=== PATIENT | female | born 2000 | race Asian ===

== ENCOUNTER 2018-01-19 14:25 | Emergency (ER) | payer OTHER ==
[2018-01-19] MEDS ORDERED: Azithromycin TAB* 250 MG PO ONE (15:47)
--- NOTE | 2018-01-19 16:02 | UC ---
Respiratory Complaint HPI - HPI Summary HPI Summary: The patient is a 17-year-old female with a one-week history of productive cough. She's had a mild sore throat. She feels mildly short of breath. She denies any chest pain. She denies any headache or muscle aches. He has had a little sinus pressure and pain. - History of Current Complaint Chief Complaint: UCRespiratory Stated Complaint: RESP ISSUE COUGH FEVER SORE THROAT Time Seen by Provider: 01/19/18 15:28 Hx Obtained From: Patient Hx Last Menstrual Period: 2-3 wks ago Onset/Duration: Gradual Onset Timing: Constant Severity Initially: Mild Pain Intensity: 3 Pain Scale Used: 0-10 Numeric Character: Cough: Productive, Sputum Description: - yellowish Aggravating Factors: Allergens - ?? Alleviating Factors: Nothing Associated Signs And Symptoms: Positive: Nasal Congestion - Allergies/Home Medications Allergies/Adverse Reactions: Allergies Allergy/AdvReac Type Severity Reaction Status Date / Time No Known Allergies Allergy Verified 01/19/18 14:48 PMH/Surg Hx/FS Hx/Imm Hx Previously Healthy: Yes - Surgical History Surgical History: None - Family History Known Family History: Positive: Hypertension - Social History Alcohol Use: None Substance Use Type: None Smoking Status (MU): Never Smoked Tobacco Review of Systems Constitutional: Negative Skin: Negative Eyes: Negative ENT: Nasal Discharge Respiratory: Cough Cardiovascular: Negative Gastrointestinal: Negative Genitourinary: Negative Motor: Negative Neurovascular: Negative Musculoskeletal: Negative Neurological: Negative Psychological: Negative Is Patient Immunocompromised?: No All Other Systems Reviewed And Are Negative: Yes Physical Exam Triage Information Reviewed: Yes Appearance: Well-Appearing, No Pain Distress, Well-Nourished Vital Signs: Initial Vital Signs Temp 98.7 F 01/19/18 14:43 Pulse 107 01/19/18 14:43 Resp 12 01/19/18 14:43 BP 107/74 01/19/18 14:43 Pulse Ox 99 01/19/18 14:43 Vital Signs Reviewed: Yes Eyes: Positive: Conjunctiva Clear ENT: Positive: Hearing grossly normal. Negative: Nasal congestion, Nasal drainage, Muffled voice, Hoarse voice Neck: Positive: Supple, Nontender Respiratory: Positive: Normal breath sounds, No respiratory distress, Rhonchi Cardiovascular: Positive: RRR, No Murmur Musculoskeletal: Positive: ROM Intact, No Edema Neurological: Positive: Alert Psychological Exam: Normal UC Diagnostic Evaluation - Laboratory O2 Sat by Pulse Oximetry: 99 - normal/not hypoxic Respiratory Course/Dx - Differential Dx/Diagnosis Provider Diagnoses: acute bronchitis Discharge - Sign-Out/Discharge Documenting (check all that apply): Patient Departure All imaging exams completed and their final reports reviewed: No Studies - Discharge Plan Condition: Stable Disposition: HOME Prescriptions: Azithromycin TAB* [Zithromax TAB*] 250 mg PO DAILY #4 tab Patient Education Materials: Acute Bronchitis (ED) Referrals: No Primary Care Phys,NOPCP [Primary Care Provider] - - Billing Disposition and Condition Condition: STABLE Disposition: Home
== END 2018-01-19 15:52 | disposition home or self-care (01) ==
LOC: UCEAST 14:25
DX: J20.9 Acute bronchitis, unspecified (principal)
CPT/HCPCS: 99202; A9270-GY; G0463

== ENCOUNTER 2018-08-27 21:56 | Emergency (ER) | payer OTHER ==
--- NOTE | 2018-08-27 23:47 | ED ---
Syncope/Near Syncope - HPI Summary HPI Summary: Pt is a 18 y/o female who presents to the ED s/p syncope. Today she had two witnessed syncopal episodes. First she was walking up the stairs when she began to have tunnel vision, then had the LOC. She was cleaning her room when the second episode occurred. Pt denies any head injury. As per friend, she was unconscious for about 15 seconds after each episode. Pt also notes that shes had a cold recently, and also c/o SOB, coughing, itchy throat, fever of 103 degrees F, rhinorrhea, and sinus pressure. She has not had a fever in the past 24 hours. Pt has vomited from her coughing bouts. She went to [facility] the past two days and was diagnosed with both URI and oral thrush. They did not do a flu swab. Pt had Tylenol today and has been staying hydrated. Pt denies any drug or alcohol use. - History Of Current Complaint Chief Complaint: EDSyncope Time Seen by Provider: 08/27/18 23:35 Hx Obtained From: Patient, Family/Mine Promotor - Friend Onset/Duration: Gradual Onset, Resolved Timing: Intermittent Episode Lasting Context: Witnessed, Loss Of Consciousness Activity At Onset: Other - climbing stairs, cleaning room Alleviating Factor(s): Spontaneous Resolution Associated Signs And Symptoms: Other - tunnel vision - Allergies/Home Medications Allergies/Adverse Reactions: Allergies Allergy/AdvReac Type Severity Reaction Status Date / Time No Known Allergies Allergy Verified 08/27/18 22:03 PMH/Surg Hx/FS Hx/Imm Hx Endocrine/Hematology History: Denies: Hx Diabetes Cardiovascular History: Reports: Other Cardiovascular Problems/Disorders - slight murmur Infectious Disease History: No Infectious Disease History: Denies: Traveled Outside the [place] in Last 30 Days - Family History Known Family History: Positive: Hypertension - Social History Alcohol Use: None Hx Substance Use: No Substance Use Type: Reports: None Hx Tobacco Use: No Smoking Status (MU): Never Smoked Tobacco Review of Systems Positive: Fever Positive: Other - tunnel vision Positive: Sore Throat - itchy, Nasal Discharge, Other - sinus pressure Positive: Shortness Of Breath, Cough Positive: Vomiting Positive: Syncope All Other Systems Reviewed And Are Negative: Yes Physical Exam - Summary Physical Exam Summary: VITAL SIGNS: Reviewed. GENERAL: Patient is a well-developed and nourished FEMALE who is lying comfortable in the stretcher. Patient is not in any acute respiratory distress. HEAD AND FACE: No signs of trauma. No ecchymosis, hematomas or skull depressions. No sinus tenderness. EYES: PERRLA, EOMI x 2, No injected conjunctiva, no nystagmus. EARS: Hearing grossly intact. Ear canals and tympanic membranes are within normal limits. MOUTH: Coated tongue. NECK: Supple, trachea is midline, no adenopathy, no JVD, no carotid bruit, no c- spine tenderness, neck with full ROM. CHEST: Symmetric, no tenderness at palpation LUNGS: Clear to auscultation bilaterally. No wheezing or crackles. CVS: Regular rate and rhythm, S1 and S2 present, no murmurs or gallops appreciated. ABDOMEN: Soft, non-tender. No signs of distention. No rebound no guarding, and no masses palpated. Bowel sounds are normal. EXTREMITIES: FROM in all major joints, no edema, no cyanosis or clubbing. NEURO: Alert and oriented x 3. No acute neurological deficits. Speech is normal and follows commands. SKIN: Dry and warm Triage Information Reviewed: Yes Vital Signs On Initial Exam: Initial Vitals Temp Pulse Resp BP Pulse Ox 98.2 F 83 16 111/77 99 08/27/18 21:59 08/27/18 21:59 08/27/18 21:59 08/27/18 21:59 08/27/18 21:59 Vital Signs Reviewed: Yes Diagnostics - Vital Signs Vital Signs Temp Pulse Resp BP Pulse Ox 08/27/18 21:59 98.2 F 83 16 111/77 99 - Laboratory Result Diagrams: 08/28/18 00:25 08/28/18 00:25 Lab Statement: Any lab studies that have been ordered have been reviewed, and results considered in the medical decision making process. - EKG 00:11 Cardiac Rate: NL - 66 bpm EKG Rhythm: Sinus Rhythm Summary of EKG Findings: Normal axis. Normal interval. No ischemic changes. Course/Dx Course Of Treatment: Pt is a 18 y/o female who presents to the ED s/p syncope. Pt also notes that shes had a cold recently, and also c/o SOB, coughing, itchy throat, fever of 103 degrees F, rhinorrhea, and sinus pressure. She has vomited from her coughing bouts. A physical exam was normal. An EKG was normal with a rate of 66 bpm. In the course she was given fluids. Bloodwork and UA without abnormality. Influenza tests were negative. Pt will be discharged with a final dx of viral syndrome and vomiting. Pt is agreeable with this plan. - Diagnoses Provider Diagnoses: Viral syndrome, Vomiting Discharge - Sign-Out/Discharge Documenting (check all that apply): Patient Departure - Discharge Patient Received Moderate/Deep Sedation with Procedure: No - Discharge Plan Condition: Improved Disposition: HOME Prescriptions: Ondansetron ODT TAB* [Zofran 4 MG Odt TAB*] 4 mg PO Q6H PRN #14 tab.odt PRN Reason: Nausea/Vomiting Patient Education Materials: Syncope (ED), Viral Syndrome (ED) Referrals: [facility] [Outside] (1-2 days) Additional Instructions: PLEASE RETURN TO THE ED IMMEDIATELY FOR WORSENING OR CONCERNING SYMPTOMS. - Attestation Statements Document Initiated by Scribe: Yes Documenting Scribe: Melanie Hinton Provider For Whom Scribe is Documenting (Include Credential): Viviane Yap MD Scribe Attestation: Melanie Georges, scribed for Viviane Yap MD on 08/28/18 at 0127. Status of Scribe Document: Ready
[2018-08-27] MEDS ORDERED: NS 0.9% IV ONE (23:59)
[2018-08-28 00:34] LABS: ABS Basophils 0 10^3/ul (0-0.2); ABS Eosinophils 0.1 10^3/ul (0-0.6); ABS Lymphocytes 2.8 10^3/ul (1.0-4.8); ABS Monocytes 0.6 10^3/ul (0-0.8); ABS Neutrophils 3.2 10^3/ul (1.5-7.7); ABS Nucleated RBC 0 10^3/ul; Eosinophil % 1.9 %; Hematocrit 40 % (33-41); Hemoglobin 13.8 g/dL (12.0-16.0); Mean Corpuscular HGB Conc 35 g/dL (31-36); Mean Corpuscular Hemoglobin 31 pg (27-31); Mean Corpuscular Volume 89 fL (80-97); Mean Platelet Volume 8.4 fL (7.4-10.4); Nucleated Red Blood Cells % 0.1; Platelet Count 193 10^3/uL (150-450); Red Blood Count 4.48 10^6 /uL (3.70-4.87); Red Cell Distribution Width 12 % (10.5-15); White Blood Count 6.8 10^3/uL (3.5-10.8)
[2018-08-28 00:42] LABS: Urine Appearance Clear; Urine Bacteria 1+ (Absent); Urine Bilirubin Negative (Negative); Urine Blood Negative (Negative); Urine Color Yellow; Urine Glucose Negative (Negative); Urine Ketones Negative (Negative); Urine Nitrite Negative (Negative); Urine Protein Negative (Negative); Urine Red Blood Cell Absent (Absent); Urine Specific Gravity 1.015 (1.010-1.030); Urine Squamous Epithelial Cell Present (Absent); Urine Urobilinogen Negative (Negative); Urine White Blood Cell Trace(0-5/hpf) (Absent)
[2018-08-28 00:56] LABS: Influenza A Molecular NEGATIVE (Negative); Influenza B Molecular NEGATIVE (Negative)
[2018-08-28 00:58] LABS: ALT 10 U/L (7-52); AST 18 U/L (13-39); Albumin 4.1 g/dL (3.2-5.2); Albumin/Globulin Ratio 1.2 (1-3); Alkaline Phosphatase 52 U/L (34-104); Anion Gap 7 mmol/L (2-11); BUN/Creatinine Ratio 11.4 (8-20); Blood Urea Nitrogen 8 mg/dL (6-24); CO2 Carbon Dioxide 24 mmol/L (22-32); Calcium 9.3 mg/dL (8.6-10.3); Chloride 105 mmol/L (101-111); EGFR African American 129.1 (>60); EGFR Non-African American 106.7 (>60); Globulin 3.3 g/dL (2-4); Glucose 88 mg/dL (70-100); Magnesium 1.9 mg/dL (1.9-2.7); Potassium 3.6 mmol/L (3.5-5.0); Sodium 136 mmol/L (135-145); Total Protein 7.4 g/dL (6.4-8.9)
[2018-08-28 01:04] LABS: HCG Pregnancy < 0.60 mIU/mL
[2018-08-28 01:32] LABS: TSH (Thyroid Stimulating Horm) 3.02 mcIU/mL (0.34-5.60)
[2018-08-28 01:58] VITALS: BP 99/61
== END 2018-08-28 01:25 | disposition home or self-care (01) ==
LOC: ED 21:56
DX: B34.9 Viral infection, unspecified (principal); R11.10 Vomiting, unspecified
CPT/HCPCS: 36415; 80053; 81003; 81015; 83735; 84443; 84484; 84702; 85025; 87086; 93005; 96360; 99283